=== PATIENT | female | born 1985 | race Caucasian/White ===

== ENCOUNTER 2018-01-28 09:50 | Emergency (ER) | payer MEDICAID ==
[2018-01-28 10:16] VITALS: BP 138/88
[2018-01-28] MEDS ORDERED: Benzonatate CAP* 100 MG PO ONE (10:55)
--- NOTE | 2018-01-28 11:01 | UC ---
Respiratory Complaint HPI - HPI Summary HPI Summary: 32 year old female with no significant pmhx here with cough, congestion and runny nose. Reports productive cough. Reports chills. No headache, n/v/d or any other complaints. - History of Current Complaint Chief Complaint: UCGeneralIllness Stated Complaint: SINUS CONGESTION, AND CHEST CONGESTION Time Seen by Provider: 01/28/18 10:40 Hx Obtained From: Patient Hx Last Menstrual Period: 01/20/18 Onset/Duration: Sudden Onset Pain Intensity: 0 Aggravating Factors: Allergens Associated Signs And Symptoms: Positive: Chills, Nasal Congestion. Negative: Wheezing - Allergies/Home Medications Allergies/Adverse Reactions: Allergies Allergy/AdvReac Type Severity Reaction Status Date / Time No Known Allergies Allergy Verified 01/28/18 10:10 Home Medications: Home Medications guaiFENesin LIQ* [Robitussin*] 10 ml PO Q4HR PRN 01/28/18 [History Confirmed 12/17] PMH/Surg Hx/FS Hx/Imm Hx Previously Healthy: Yes - Surgical History Surgical History: None - Family History Known Family History: Positive: None - Social History Alcohol Use: Rare Substance Use Type: None Smoking Status (MU): Light Every Day Tobacco Smoker Amount Used/How Often: 3-4 cig day Review of Systems Constitutional: Chills Respiratory: Cough All Other Systems Reviewed And Are Negative: Yes Physical Exam Triage Information Reviewed: Yes Appearance: Well-Appearing, No Pain Distress Vital Signs: Initial Vital Signs Temp 36.7 C 01/28/18 10:12 Pulse 88 01/28/18 10:12 Resp 16 01/28/18 10:12 BP 138/88 01/28/18 10:12 Pulse Ox 100 01/28/18 10:12 ENT Exam: Normal ENT: Positive: Pharynx normal, Nasal congestion. Negative: Pharyngeal erythema Respiratory Exam: Normal Cardiovascular Exam: Normal Abdominal Exam: Normal Musculoskeletal Exam: Normal Skin Exam: Normal UC Diagnostic Evaluation - Laboratory O2 Sat by Pulse Oximetry: 100 Respiratory Course/Dx - Course Course Of Treatment: Viral illness - Differential Dx/Diagnosis Differential Diagnosis/HQI/PQRI: Lower Resp Infection, Sinusitis, Other - viral illness Provider Diagnoses: URI Discharge - Discharge Plan Condition: Good Disposition: HOME Prescriptions: Benzonatate CAP* [Tessalon 100 MG CAP*] 100 mg PO TID PRN #30 cap PRN Reason: Cough Patient Education Materials: Viral Syndrome (ED) Forms: *Work Release Referrals: No Primary Care Phys,NOPCP [Primary Care Provider] -
== END 2018-01-28 11:08 | disposition home or self-care (01) ==
LOC: UCEAST 09:50
DX: J06.9 Acute upper respiratory infection, unspecified (principal); F17.210 Nicotine dependence, cigarettes, uncomplicated
CPT/HCPCS: 99202; A9270-GY; G0463